=== PATIENT | male | born 2000 | race Caucasian/White ===

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

== ENCOUNTER 2024-12-08 15:02 | Emergency (ER) | payer MEDICAID ==
[~2024-12-08] VITALS: Ht 190.5 cm; Wt 64.8 kg
[2024-12-08 15:11] VITALS: BP 112/74; PULSE 98; RESP 18; TEMP 98.1; O2SAT 98
--- NOTE | 2024-12-08 15:32 | RADIOLOGY REPORT ---
DI ANKLE, COMPLETE(3VW MIN), 12/08/2024 at 3:21 p.m. INDICATION: ANKLE PAIN TECHNICAL DATA:Frontal , oblique and lateral views were obtained of the left ankle. COMPARISON: None FINDINGS: No fracture is identified. Joint spaces are maintained. Alignment is anatomic. Soft tissues are wit hin normal limit. IMPRESSION: 1. No acute fracture or dislocation of the left ankle.
--- NOTE | 2024-12-08 16:07 | Physician Documentation ---
History of Present Illness ~ Chief Complaint: Ankle pain Stated Complaint: L FOOT INJURY Time Seen by MD: 15:13 Primary Medical Doctor: PCP DR PRIETO [facility] This is a 24-year-old male who presents with four days of left heel and foot pain after striking his heel barefoot forcefully on a concrete surface while catching himself after stumbling, patient reports that it is more painful to walk on and has been using crutches to rest his foot though he believes the crutches are not properly fitted and he is having trouble keeping weight off the foot. Patient reports no loss of sensation to the foot. Tetanus witin 5 years: Yes Medication Reconciliation Allergies: Coded Allergies: sumatriptan (Verified Allergy, Unknown, 12/08/24) Uncoded Allergies: PENICILLIN (Allergy, Intermediate, increased restlessness, 12/20/17) Scheduled Ibuprofen (Ibuprofen), 1 TAB PO Q8H Past Medical History Past Medical History: No Pertinent History Past Surgical History: noncontributory Alcohol Use: None Drug Use: none Lives with: Mother, Father Lives In: Home Occupation: student Review of Systems ROS Left heel and foot pain as stated above in the HPI, otherwise all systems are reviewed and negative. Physical Exam Vital Signs: Temperature: 98.1, Source: Temporal, Heart Rate: 98, Respiratory Rate: 18, BP: 112/74, Pulse Oximetry: 98, Weight: 64.800 Physical Exam VITALS: Reviewed and as above. GENERAL: Alert, nontoxic appearing, no apparent distress. RESPIRATORY: No increased work of breathing, no respiratory distress, speaking in full clear sentences EXTREMITIES: Left ankle and foot; Plantar surface of left felt tipping machine tender to palpation, medial aspect of left ankle tender to palpation with mild ecchymosis, no erythema, no deformity, no edema, brisk capillary refill, pedal pulse intact, sensation intact Progress Results/Orders Results/Orders Orders - DOMENICO VAUGHN Ortho Orders (12/08/24 ) Completed Orders - DOMENICO VAUGHN Ibuprofen Tablet (Motrin Tablet) (12/08/24 16:00) Vital Signs 12/08/24 15:11 Temp 98.1 Pulse 98 Resp 18 B/P (MAP) 112/74 Pulse Ox 98 EKG/XRAY/CT/US/VASC/MRI Bone/Soft Tissue X-Ray (Ext.) : Additional Comment DI ANKLE, COMPLETE(3VW MIN), 12/08/2024 at 3:21 p.m. INDICATION: ANKLE PAIN TECHNICAL DATA:Frontal , oblique and lateral views were obtained of the left ankle. COMPARISON: None FINDINGS: No fracture is identified. Joint spaces are maintained. Alignment is anatomic. Soft tissues are within normal limit. IMPRESSION: 1. No acute fracture or dislocation of the left ankle. Electronically Signed by:AJ WILSON MD Date & Time: 12/08/24 1529 Dictated by: AJ WILSON MD Dictation date and time: 12/08/24 1518 I have reviewed and agree with the radiology report. I have reviewed and interpreted the imaging as: No fracture or dislocation Medical Decision Making Findings This 24-year-old male presented with pain to his left heel and foot after striking as he will forcefully on concrete while barefoot, physical exam did not demonstrate vitals deformity or significant edema or ecchymosis, no x-ray was obtained and did not demonstrate evidence of fracture or dislocation. I suspect soft tissue injury to the area. Is reassuring the foot was neurovascularly intact. Remainder of physical exam was benign and patient is appropriate for outpatient follow up. Plan will be to place patient on crutches and for home care instructions with RICE therapy at home. Patient provided follow up, home care, and return to care instructions which patient verbalized understanding of. General Diff Dx:Considerations: Include: Abrasion, Contusion, Fracture, Hematoma, Laceration, Neurovascular injury, Sprain Departure Time of Disposition: 16:12 Disposition: 01 HOME / SELF CARE / HOMELESS Impression: Primary Impression: Ankle pain Qualified Codes: M25.572 - Pain in left ankle and joints of left foot Additional Impression: Foot pain, left Condition: Improved Discharge Instructions: Ankle Pain, RICE Therapy for Routine Care of Injuries Additional Instructions: Please see the attached home care instructions. You may use ibuprofen and or Tylenol as needed for pain as directed by [id number]-[id number] package instructions or the prescribed directions for they high-dose ibuprofen that has been prescribed. Please take ibuprofen with food to decrease the chance of stomach upset. Please follow up with your primary care provider in the next few days. Please return to the emergency department for any new or worsening concerning symptoms. Referrals: NO PRIMARY CARE PROVIDER (PCP) Prescriptions Ibuprofen (Ibuprofen) 800 Mg Tablet 1 TAB PO Q8H for pain for 10 Days, #30 TAB 0 Refills Prov: DOMENICO VAUGHN 12/08/24 Education Educated: Patient Educated regarding: diagnosis, treatment, prognosis, need for follow up Signature Scribe Signature: No scribe Attestation: The note accurately reflects work and decisions made by me.MARIBEL Dinh 12/09/24 03:11 DOMENICO VAUGHN December 08, 2024 16:07
[2024-12-08] MEDS ORDERED: IBUP-1986 PO (16:12)
[2024-12-08] MEDS: ibuprofen tablet 400 MG TABLET PO ONE (16:32)
== END 2024-12-08 16:35 | disposition home or self-care (01) ==
LOC: ER 15:02
DX: M25.572 Pain in left ankle and joints of left foot (principal); M79.672 Pain in left foot; W22.09XA Striking against other stationary object, initial encounter; Y93.89 Activity, other specified; Y92.89 Other specified places as the place of occurrence of the external cause; Y99.8 Other external cause status
CPT/HCPCS: 29515; 73610; 99284; L1930

== ENCOUNTER 2025-03-19 18:26 | Emergency (ER) | payer MEDICAID ==
[~2025-03-19] VITALS: Ht 190.5 cm; Wt 67.4 kg
[~2025-03-19 18:26] MED LIST: IBUP-1986 PO
[2025-03-19 18:29] VITALS: BP 111/75; PULSE 112; RESP 16; O2SAT 97
[2025-03-19] MEDS: LIDOcaine 1% W/epiNEPHrine 1:100,000 20ml vial SQ STA (19:12)
[2025-03-19 19:48] VITALS: TEMP 98.4
--- NOTE | 2025-03-19 19:50 | Physician Documentation ---
History of Present Illness ~ Chief Complaint: Foreign body Stated Complaint: FISH HOOK IN ELBOW Time Seen by MD: 18:41 Primary Medical Doctor: PCP DR IDA ROUSE Patient is seen today with complaints of getting a fishhook stuck in the medial aspect of his left forearm just distal to the elbow. Patient states he tried to get it out extensively at home but was unable to. Patient has no other concern or complaint at this time. Tetanus within 5 years: Yes Medication Reconciliation Allergies: Coded Allergies: sumatriptan (Verified Allergy, Unknown, 12/08/24) Uncoded Allergies: PENICILLIN (Allergy, Intermediate, increased restlessness, 12/20/17) Scheduled Ibuprofen (Ibuprofen), 1 TAB PO Q8H Past Medical History Past Medical History: No Pertinent History Past Surgical History: noncontributory Alcohol Use: None Drug Use: none Lives with: Mother, Father Lives In: Home Occupation: student Review of Systems Constitutional: Denies: chills, fever, weakness Eyes: Denies: pain, blurred vision ENT: Denies: ear pain, nose pain, throat pain, mouth pain Respiratory: Denies: cough, shortness of breath Cardiovascular: Denies: chest pain, palpitations Gastrointestinal: Denies: abdominal pain, nausea, vomiting Genitourinary: Denies: burning, dysuria Male Genitalia: Denies: penile discharge, testicular pain Neurological: Denies: headache, dizziness Musculoskeletal: Denies: pain, swelling Integumentary: Denies: rash, lesions Allergic/Immunologic: Denies: hives, itching Hematologic/Lymphatic: Denies: no symptoms reported Psychiatric: Denies: depression, anxiety Physical Exam Vital Signs: Temperature: 98.4, Source: Temporal, Heart Rate: 112, Respiratory Rate: 16, BP: 111/75, Pulse Oximetry: 97, Weight: 67.400 Oxygen Flow Rate: 0 Physical Exam General: Awake and Alert, no acute distress. HEENT: Conjunctiva pink, Sclera clear, Mucus Membranes moist. Neck: Supple without masses and tenderness. Resp: Unlabored. Lungs clear to auscultation bilaterally. Heart: Regular Rate and rhythm, normal S1 and S2 without murmur, rub or gallop. Musculoskeletal: Patient on exam does have fishhook imbedded into the Flexeril surface of his left forearm just distal to the elbow. Patient has no active bleeding currently. Patient is neurovascularly intact distally. Motor function intact distally. Extremities: No cyanosis,clubbing or edema. Skin: Warm and Dry. Procedures Laceration Repair : Procedure Note Procedure note: Patient did have 3 cc of 1% lidocaine with epinephrine injected into the site of the foreign body or fishhook in the Flexeril surface of the left forearm. Patient tolerated well. [place] was removed using hemostat/needle cmv driver. Patient tolerated well. Area was irrigated copiously and cleansed with iodine and patient tolerated well. Progress Results/Orders Results/Orders Completed Orders - BRENDA WINN Lidocaine 1% W/Epi 1:100,000 (Xylocaine (03/19/25 18:47) Vital Signs 03/19/25 18:29 Temp 98.4 Pulse 112 Resp 16 B/P (MAP) 111/75 Pulse Ox 97 O2 Flow Rate 0 Medical Decision Making Findings Patient is seen today with complaints of getting a fishhook stuck in the medial aspect of his left forearm just distal to the elbow. Patient states he tried to get it out extensively at home but was unable to. Patient has no other concern or complaint at this time. Patient will be given Bactrim DS Augmentin in the ED today along with a supply for three days sent to patient pharmacy. Patient will follow up in 2-3 days if no better as needed sooner. Return to ED with any worsening, concerning or changing symptoms. Departure Disposition: 01 HOME / SELF CARE / HOMELESS Impression: Primary Impression: Fish hook in upper arm Condition: Improved Discharge Instructions: Foreign Body Additional Instructions: Patient will be given Bactrim DS Augmentin in the ED today along with a supply for three days sent to patient pharmacy. Patient will follow up in 2-3 days if no better as needed sooner. Return to ED with any worsening, concerning or changing symptoms. Referrals: NO PRIMARY CARE PROVIDER (PCP) Prescriptions Amox Tr/Potassium Clavulanate (Augmentin 875-125 Tablet) 1 Each Tablet 1 TAB PO Q12H for 3 Days, #6 TAB Prov: BRENDA WINN 03/19/25 Sulfamethoxazole/Trimethoprim (Bactrim Ds Tablet) 800 Mg-160 Mg Tablet 1 TAB PO Q12H for 3 Days, #6 TAB Prov: BRENDA WINN 03/19/25 Signature Scribe Signature: No scribe Attestation: No scribe TATUMBRENDA R [facility] Mar 19, 2025 19:50
[2025-03-19] MEDS ORDERED: SULF1TAB49 PO (19:55)
[2025-03-19] MEDS ORDERED: AMOX-117 PO (19:55)
[2025-03-19] MEDS: sulfamethoxazole/trimethoprim DS (800/160mg) tablet PO STA (20:25)
[2025-03-19] MEDS: amox tr/potassium clavulanate 875/125mg TAB PO STA (20:25)
== END 2025-03-19 20:26 | disposition home or self-care (01) ==
LOC: ER 18:26
DX: S50.852A Superficial foreign body of left forearm, initial encounter (principal); Z88.8 Allergy status to other drugs, medicaments and biological substances; Z79.899 Other long term (current) drug therapy; W45.8XXA Other foreign body or object entering through skin, initial encounter; Y93.89 Activity, other specified; Y92.89 Other specified places as the place of occurrence of the external cause; Y99.8 Other external cause status
CPT/HCPCS: 99284; A6258; A6449